=== PATIENT | female | born 1990 | race American Indian/Alaskan Native ===

== ENCOUNTER 2017-01-10 23:18 | Emergency (ER) | payer SELFPAY ==
[2017-01-11 00:05] VITALS: BP 125/65
== END 2017-01-11 07:36 | disposition left against medical advice (07) ==
LOC: ED 23:18
DX: M54.2 Cervicalgia (principal); R07.89 Other chest pain; M54.9 Dorsalgia, unspecified; M25.531 Pain in right wrist; M25.532 Pain in left wrist; Z53.21 Procedure and treatment not carried out due to patient leaving prior to being seen by health care provider
CPT/HCPCS: 36415; 84703